=== PATIENT | female | born 1975 | race Caucasian/White ===

== ENCOUNTER 2018-12-12 12:05 | Emergency (ER) | payer OTHER ==
[~2018-12-12] VITALS: Ht 162.6 cm; Wt 86.2 kg
[2018-12-12] MEDS ORDERED: LORazepam 0.5 MG TAB PO ONE (13:00)
[2018-12-12 13:27] LABS: Basophils # (auto) 0.1 uL; Basophils % (auto) 1.2 % (0.0-2.0); Eosinophils # (auto) 0.1 uL; Eosinophils % (auto) 1.5 % (0.0-7.0); Hematocrit 40.1 % (36.0-46.0); Hemoglobin 13.8 g/dL (12.2-16.2); Lymphocytes # (auto) 2.8 uL; Lymphocytes % (auto) 31.1 % (10.0-50.0); Mean Corpuscular Hgb Conc. 34.3 g/dL (32.0-36.0); Mean Corpuscular Volume 93.3 fL (80.0-100.0); Monocytes # (auto) 0.6 uL; Monocytes % (auto) 7.2 % (0.0-12.0); Neutrophils # (auto) 5.3 uL; Platelet Count (auto) 369 10^3/uL (140-450); Red Cell Distribution Width 13.5 % (11.8-14.3)
[2018-12-12 13:40] LABS: Urine Bacteria NONE SEEN /hpf (None Seen); Urine Blood 1+ /uL (Negative); Urine Hyaline Cast FEW /lpf (0 - 2); Urine Mucus FEW (None Seen); Urine Specific Gravity 1.023 (1.001-1.035); Urine WBC 13 /hpf (0 - 5)
[2018-12-12 13:49] LABS: Alcohol, Urine < 3.0 mg/dL (0-5); Amphetamine Screen, Urine NEGATIVE (NEGATIVE); Barbiturate Scree,Urine NEGATIVE (NEGATIVE); Benzodiazephine Screen, Urine NEGATIVE (NEGATIVE); Cannabinoid Screen, Urine POSITIVE (NEGATIVE); Cocaine Screen, Urine NEGATIVE (NEGATIVE); Opiate Scree,Urine NEGATIVE (NEGATIVE); Phencyclidine Screen, Urine NEGATIVE (NEGATIVE)
[2018-12-12 13:50] LABS: Albumin 3.9 g/dL (3.4-5.0); BUN/Creatinine Ratio 20.3; Calcium 8.9 mg/dL (8.5-10.1); Potassium 3.6 mmol/L (3.5-5.1)
[2018-12-12 13:52] LABS: Bilirubin, Total 0.4 mg/dL (0.2-1.0)
[2018-12-12] MEDS ORDERED: QUEtiapine FUMARATE 100 MG TAB PO ONE (17:00)
[2018-12-12] MEDS ORDERED: OMEPRAZOLE 20MG/10ML ORAL SUSP GT ONE (21:30)
[2018-12-12] MEDS ORDERED: PANTOPRAZOLE 40 MG TAB PO ONE (21:45)
[2018-12-12] MEDS ORDERED: QUEtiapine FUMARATE 100 MG TAB PO SCH (22:00)
[2018-12-13 08:35] VITALS: BP 104/65
[2018-12-13] MEDS ORDERED: buPROPion HCL 100 MG TAB PO SCH (10:00)
== END 2018-12-13 08:48 | disposition other institution (70) ==
LOC: ER 12:05
DX: F31.9 Bipolar disorder, unspecified (principal); J44.9 Chronic obstructive pulmonary disease, unspecified; F20.9 Schizophrenia, unspecified
CPT/HCPCS: 36415; 80053; 80307; 81001; 85025; 93005; 94761

== ENCOUNTER → 2020-04-07 06:21 | Emergency (ER) | payer BC, OTHER ==
[~2020-04-07] VITALS: Ht 162.6 cm; Wt 90.7 kg
[~2020-04-07 06:21] MED LIST: CLINDAMYCIN 900MG IV 50 ML IV ONE; KETOROLAC TROMETH 30 MG/ML 1ML VIAL IV ONE; SODIUM CHLORIDE 0.9% 1,000 ML IV ONE; cefTRIAXone 1GM/50ML D5W 50 ML IV ONE
[2020-04-07 07:32] VITALS: BP 129/80
[2020-04-07 08:09] LABS: Basophils # (auto) 0 10 ^3/uL (0-0.2); Basophils % (auto) 0.3 % (0.0-2.0); Eosinophils # (auto) 0.8 10 ^3/uL (0-0.8); Eosinophils % (auto) 5.2 % (0.0-7.0); Hematocrit 36.5 % (36.0-46.0); Lymphocytes # (auto) 1.7 10 ^3/uL (0.4-5.4); Lymphocytes % (auto) 11.5 % (10.0-50.0); Mean Corpuscular Hemoglobin 31.1 pg (28.0-32.0); Mean Corpuscular Volume 94.2 fL (80.0-100.0); Monocytes % (auto) 6.5 % (0.0-12.0); Neutrophils # (auto) 11.4 10 ^3/uL (1.6-8.6); Neutrophils % (auto) 76.5 % (37.0-80.0); Platelet Count (auto) 380 10^3/uL (140-450); Red Blood Cells 3.87 10^6/uL (4.0-5.20); Red Cell Distribution Width 13.3 % (11.8-14.3); White Blood Cell 14.9 10^3/uL (4.4-10.8)
[2020-04-07 08:23] LABS: Albumin 3.6 g/dL (3.4-5.0); Calcium 8.5 mg/dL (8.5-10.1); Potassium 4.2 mmol/L (3.5-5.1)
[2020-04-07 08:27] LABS: BUN/Creatinine Ratio 11.8; Bilirubin, Total 0.5 mg/dL (0.2-1.0); Total Protein 7.3 g/dL (6.4-8.2)
== END | disposition home or self-care (01) ==
LOC: ER 06:21
DX: K04.7 Periapical abscess without sinus (principal); J44.9 Chronic obstructive pulmonary disease, unspecified; Z88.2 Allergy status to sulfonamides
CPT/HCPCS: 36415; 70486; 80053; 83605; 85025; 87040; 96365; 96368; 99284; J0696; J1885; J3490; J7030

== ENCOUNTER 2020-07-27 10:51 | Emergency (ER) | payer BC, OTHER ==
[~2020-07-27] VITALS: Ht 162.6 cm; Wt 90.7 kg
[2020-07-27] MEDS: ONDANSETRON ODT 4 MG TAB PO ONE (12:52)
[2020-07-27] MEDS: KETOROLAC TROMETH 60MG/2ML VIAL IM ONE (12:52)
[2020-07-27 13:44] VITALS: BP 137/79
== END 2020-07-27 13:44 | disposition home or self-care (01) ==
LOC: ER 10:51
DX: G43.909 Migraine, unspecified, not intractable, without status migrainosus (principal); F41.9 Anxiety disorder, unspecified; J44.9 Chronic obstructive pulmonary disease, unspecified; F32.9 Major depressive disorder, single episode, unspecified; F20.9 Schizophrenia, unspecified; F17.210 Nicotine dependence, cigarettes, uncomplicated; Z88.6 Allergy status to analgesic agent
CPT/HCPCS: 96372; 99283; J1885; Q0162